=== PATIENT | male | born 1990 | race Caucasian/White ===

== ENCOUNTER 2021-12-11 11:00 | Emergency (ER) | payer SELFPAY ==
[~2021-12-11] VITALS: Ht 165.1 cm; Wt 68.0 kg
[2021-12-11 11:23] VITALS: BP 118/75
--- NOTE | 2021-12-11 12:35 | NUR ---
PT TAKEN TO CHAIR 13.
[2021-12-11] MEDS ORDERED: CEPH-588 PO (13:00)
[2021-12-11] MEDS ORDERED: LIDOCAINE MPF 1% 5 ML ONE (13:42)
[2021-12-11] MEDS ORDERED: LIDOCAINE MPF 1% 10 MG/ML VIAL INJ ONE (13:50)
[2021-12-11 15:21] VITALS: BP 112/70
--- NOTE | 2021-12-11 15:21 | NUR ---
Patient discharged with v/s stable. Written and verbal after care instructions given and explained. Patient verbalized understanding. Ambulatory with steady gait. All questions addressed prior to discharge. Advised to follow up with PMD.
== END 2021-12-11 15:21 | disposition home or self-care (01) ==
LOC: MED 11:00
DX: S68.125A Partial traumatic metacarpophalangeal amputation of left ring finger, initial encounter (principal); X58.XXXA Exposure to other specified factors, initial encounter; Y93.89 Activity, other specified; Y92.89 Other specified places as the place of occurrence of the external cause; Y99.8 Other external cause status
CPT/HCPCS: 12001; 73140; 99283; J2001